=== PATIENT | female | born 1945 | race Native Hawaiian/Other Pacific Islander ===

== ENCOUNTER 2016-12-26 07:40 | Outpatient (CLI) | payer OTHER ==
[2016-12-26 08:42] LABS: POTASSIUM 3.8 mmol/L (3.6-5.2); SODIUM 140 mmol/L (136-145)
== END 2016-12-26 19:07 | disposition home or self-care (01) ==
LOC: CT 07:40
PROVIDERS: Family Medicine
DX: R07.89 Other chest pain (principal); E03.8 Other specified hypothyroidism; E66.09 Other obesity due to excess calories
CPT/HCPCS: 36415; 80053; 80061; 84443; Q9963

== ENCOUNTER 2017-03-12 10:21 | Outpatient (CLI) | payer OTHER | END 2017-03-12 11:30 | disposition home or self-care (01) | LOC: RESP 10:21 | DX: R07.89 Other chest pain (principal) | CPT/HCPCS: 93306 ==

== ENCOUNTER 2017-04-14 09:10 | Outpatient (CLI) | payer OTHER ==
[2017-04-14 09:59] LABS: POTASSIUM 3.9 mmol/L (3.6-5.2); SODIUM 139 mmol/L (136-145)
== END 2017-04-14 11:00 | disposition home or self-care (01) ==
LOC: NM 09:10
PROVIDERS: Specialist
DX: Z12.31 Encounter for screening mammogram for malignant neoplasm of breast (principal); E78.4 Other hyperlipidemia; E03.8 Other specified hypothyroidism; I10 Essential (primary) hypertension; R07.89 Other chest pain
CPT/HCPCS: 36415; 80053; 80061; 84443; A9561; G0202-TC

== ENCOUNTER 2017-11-10 08:33 | Outpatient (CLI) | payer OTHER ==
[~2017-11-10] VITALS: Ht 30.5 cm; Wt 0.5 kg
== END 2017-11-10 19:57 | disposition home or self-care (01) ==
LOC: NM 08:33
DX: R07.89 Other chest pain (principal)
CPT/HCPCS: A9500; J2785

== ENCOUNTER 2017-12-03 09:51 | Outpatient (CLI) | payer OTHER ==
[2017-12-03 10:16] LABS: PLATELET COUNT 256 K/uL (152-353)
[2017-12-03 10:36] LABS: POTASSIUM 3.9 mmol/L (3.6-5.2)
== END 2017-12-03 22:46 | disposition home or self-care (01) ==
LOC: LABW 09:51
PROVIDERS: Specialist
DX: R07.2 Precordial pain (principal); R93.1 Abnormal findings on diagnostic imaging of heart and coronary circulation
CPT/HCPCS: 36415; 80053; 85027

== ENCOUNTER 2018-06-18 07:54 | Outpatient (CLI) | payer OTHER ==
[2018-06-18 08:28] LABS: PLATELET COUNT 274 K/uL (152-353)
[2018-06-18 08:45] LABS: POTASSIUM 3.4 mmol/L (3.6-5.2)
== END 2018-06-18 20:14 | disposition home or self-care (01) ==
LOC: LABW 07:54
PROVIDERS: Nurse Practitioner Family
DX: I10 Essential (primary) hypertension (principal); E78.5 Hyperlipidemia, unspecified; E03.9 Hypothyroidism, unspecified
CPT/HCPCS: 36415; 80053; 80061; 84443; 85027

== ENCOUNTER 2018-06-23 10:18 | Outpatient (CLI) | payer OTHER | END 2018-06-23 20:57 | disposition home or self-care (01) | LOC: MAMMO 10:18 | DX: Z12.31 Encounter for screening mammogram for malignant neoplasm of breast (principal) ==

== ENCOUNTER 2018-12-23 07:13 | Outpatient (CLI) | payer OTHER ==
[2018-12-23 08:10] LABS: PLATELET COUNT 271 K/uL (152-353)
[2018-12-23 08:27] LABS: POTASSIUM 3.5 mmol/L (3.6-5.2)
== END 2018-12-23 19:49 | disposition home or self-care (01) ==
LOC: LABW 07:13
PROVIDERS: Nurse Practitioner Family
DX: E03.8 Other specified hypothyroidism (principal); I10 Essential (primary) hypertension; E78.49 Other hyperlipidemia
CPT/HCPCS: 36415; 80053; 80061; 81000; 82306; 84443; 85027

== ENCOUNTER 2019-04-04 09:38 | Outpatient (CLI) | payer OTHER | END 2019-04-04 23:20 | disposition home or self-care (01) | LOC: RAD 09:38 | DX: Z13.820 Encounter for screening for osteoporosis (principal); N95.8 Other specified menopausal and perimenopausal disorders ==

== ENCOUNTER 2019-09-21 09:53 | Outpatient (CLI) | payer OTHER ==
[2019-09-21 10:31] LABS: PLATELET COUNT 438 K/uL (152-353)
[2019-09-21 10:50] LABS: POTASSIUM 3.6 mmol/L (3.6-5.2)
== END 2019-09-21 21:09 | disposition home or self-care (01) ==
LOC: LABW 09:53 → MAMMO 10:30 → LABW 21:09
PROVIDERS: Internal Medicine
DX: Z12.31 Encounter for screening mammogram for malignant neoplasm of breast (principal); I10 Essential (primary) hypertension; E78.49 Other hyperlipidemia; E03.8 Other specified hypothyroidism
CPT/HCPCS: 36415; 80053; 80061; 84443; 85027

== ENCOUNTER 2019-09-29 09:24 | Outpatient (CLI) | payer OTHER ==
[2019-09-29 10:27] LABS: POTASSIUM 3.5 mmol/L (3.6-5.2)
== END 2019-09-29 22:39 | disposition home or self-care (01) ==
LOC: LABW 09:24
PROVIDERS: Nurse Practitioner Family
DX: R74.8 Abnormal levels of other serum enzymes (principal); D75.89 Other specified diseases of blood and blood-forming organs; R77.0 Abnormality of albumin; E53.8 Deficiency of other specified B group vitamins; D64.89 Other specified anemias
CPT/HCPCS: 36415; 80053; 82607; 82746

== ENCOUNTER 2021-04-05 08:25 | Outpatient (CLI) | payer OTHER ==
[2021-04-05 09:15] LABS: PLATELET COUNT 251 K/uL (152-353); POTASSIUM 3.8 mmol/L (3.6-5.2)
== END 2021-04-05 19:56 | disposition home or self-care (01) ==
LOC: LABW 08:25
PROVIDERS: ATTEND Nurse Practitioner Family
DX: I10 Essential (primary) hypertension (principal); I25.10 Atherosclerotic heart disease of native coronary artery without angina pectoris; E03.8 Other specified hypothyroidism; E55.9 Vitamin D deficiency, unspecified; R82.998 Other abnormal findings in urine
CPT/HCPCS: 36415; 80053; 80061; 81000; 82306; 84480; 85027; 87086; 87088

== ENCOUNTER 2021-06-20 08:11 | Outpatient (CLI) | payer OTHER ==
[~2021-06-20] VITALS: Ht 162.6 cm; Wt 83.5 kg
== END 2021-06-20 18:52 | disposition home or self-care (01) ==
LOC: NM 08:11
PROVIDERS: ATTEND Nurse Practitioner
DX: I25.10 Atherosclerotic heart disease of native coronary artery without angina pectoris (principal)
CPT/HCPCS: A9500; J2785

== ENCOUNTER 2021-06-28 12:41 | Outpatient (CLI) | payer OTHER | END 2021-06-28 21:04 | disposition home or self-care (01) | LOC: MAMMO 12:41 | PROVIDERS: ATTEND Nurse Practitioner Family | DX: Z12.31 Encounter for screening mammogram for malignant neoplasm of breast (principal) ==